=== PATIENT | male | born 1995 | race Caucasian/White ===

== ENCOUNTER 2018-02-11 12:24 | Inpatient (IN) | END 2018-02-13 18:20 | disposition home or self-care (01) | DRG 272 ==

== ENCOUNTER 2018-08-17 12:33 | Emergency (ER) | payer MEDICAID, OTHER ==
[~2018-08-17] VITALS: Wt 109.0 kg
--- NOTE | 2018-08-17 14:38 | ERD ---
ER Documentation Chief Complaint Chief Complaint CHEST PAIN AND BACK PAIN FOR THE PAST WEEK. HPI The patient is a 23-year-old male, presenting to the ER because of intermittent substernal and bilateral chest and upper back pain for the last week, pain is worse with movement, denies chest pain with vomiting/radiation/exertion/diapho resis, dyspnea, abdominal pain, vomiting, dizzy, diarrhea. 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 Medications Home Meds Active Scripts Ibuprofen* (Motrin*) 600 Mg Tab, 600 MG PO Q6H PRN for PAIN, #20 TAB Prov:EDDA TADEO MD 08/17/18 Reported Medications Rivaroxaban* (Xarelto*) 20 Mg Tablet, 20 MG PO WITH DINNER, TAB 08/17/18 Allergies Allergies: Coded Allergies: No Known Allergy (Unverified , 08/17/18) PMhx/Soc History of Surgery: No Anesthesia Reaction: No Hx Neurological Disorder: No Hx Respiratory Disorders: No Hx Cardiac Disorders: No Hx Psychiatric Problems: No Hx Miscellaneous Medical Probl: No Hx Alcohol Use: No Hx Substance Use: No Hx Tobacco Use: No Physical Exam Vitals Vital Signs Date Temp Pulse Resp B/P (MAP) Pulse Ox O2 O2 Flow FiO2 Time Delivery Rate 08/17/18 97.9 75 20 95/75 (82) 99 Room Air 19:26 08/17/18 97.9 89 20 115/70 99 Room Air 18:45 (85) 08/17/18 97.9 78 20 149/72 99 Room Air 18:42 (97) 08/17/18 97.9 79 16 108/71 97 Room Air 17:40 (83) 08/17/18 97.9 73 16 115/67 97 Room Air 16:50 (83) 08/17/18 97.9 77 20 118/73 99 Room Air 15:47 (88) 08/17/18 97.9 88 20 124/87 99 Room Air 15:18 (99) 08/17/18 97.9 102 20 133/84 99 12:36 (100) Physical Exam Const: No acute distress. Head: Atraumatic. Eyes: Normal Conjunctiva. ENT: Normal External Ears, Nose and Mouth. Neck: Full range of motion. No meningismus. Resp: Clear to auscultation bilaterally. Cardio: Regular rate and rhythm. Abd: Soft, non distended, normal bowel sounds, non tender. Skin: No petechiae or rashes. Back: No midline or flank tenderness. Ext: No cyanosis, or edema. Neur: Awake and alert. No focal deficit Psych: Normal Mood and Affect. Result Diagram: 08/17/18 1516 08/17/18 1516 Results 24 hrs Laboratory Tests Test 08/17/18 15:09 08/17/18 15:16 08/17/18 18:16 Urine Opiates Screen Negative Urine Barbiturates Negative Urine Amphetamines Screen Negative Urine Benzodiazepines Screen Negative Urine Cocaine Screen Negative Urine Cannabinoids Negative White Blood Count 5.5 10^3/ul Red Blood Count 5.14 10^6/ul Hemoglobin 15.1 g/dl Hematocrit 44.9 % Mean Corpuscular Volume 87.4 fl Mean Corpuscular Hemoglobin 29.4 pg Mean Corpuscular 33.6 g/dl Hemoglobin Concent Red Cell Distribution Width 12.0 % Platelet Count 256 10^3/UL Mean Platelet Volume 9.4 fl Immature Granulocytes % 0.400 % Neutrophils % 55.9 % Lymphocytes % 27.8 % Monocytes % 14.8 % Eosinophils % 0.7 % Basophils % 0.4 % Nucleated Red Blood Cells % 0.0 /100WBC Immature Granulocytes # 0.020 10^3/ul Neutrophils # 3.1 10^3/ul Lymphocytes # 1.5 10^3/ul Monocytes # 0.8 10^3/ul Eosinophils # 0.0 10^3/ul Basophils # 0.0 10^3/ul Nucleated Red Blood Cells # 0.0 10^3/ul Prothrombin Time 13.3 Sec Prothrombin Time Ratio 1.0 INR International 1.00 Normalized Ratio Activated Partial Thromboplast 30.3 Sec Time Sodium Level 140 mmol/L Potassium Level 4.3 mmol/L Chloride Level 101 mmol/L Carbon Dioxide Level 27 mmol/L Anion Gap 12 Blood Urea Nitrogen 16 mg/dl Creatinine 1.09 mg/dl Est Glomerular Filtrat > 60 mL/min Rate mL/min Glucose Level 96 mg/dl Calcium Level 9.8 mg/dl Total Bilirubin 0.6 mg/dl Direct Bilirubin 0.00 mg/dl Indirect Bilirubin 0.6 mg/dl Aspartate Amino Transf (AST/SGOT) 27 IU/L Alanine 33 IU/L Aminotransferase (ALT/SGPT) Alkaline Phosphatase 96 IU/L Creatine Kinase 127 IU/L Creatine Kinase Index 0.5 Creatinine Kinase MB (Mass) 0.63 ng/ml Troponin I < 0.012 ng/ml < 0.012 ng/ml Total Protein 8.3 g/dl Albumin 4.6 g/dl Globulin 3.70 g/dl Albumin/Globulin Ratio 1.24 Lipase 36 U/L Current Medications Medications Dose Sig/Haydee Start Time Status Last (Trade) Ordered Route PRN Stop Time Admin Dose Reason Admin IV Flush 10 ml STK-MED 08/17/18 DC 08/17/18 (NS 10 ml) ONCE .ROUTE 16:53 17:41 08/17/18 16:54 Sodium 100 ml @ ud STK-MED 08/17/18 DC 08/17/18 Chloride ONCE .ROUTE 16:53 17:42 08/17/18 16:54 Iohexol 100 ml @ ud STK-MED 08/17/18 DC 08/17/18 ONCE .ROUTE 16:53 17:42 08/17/18 16:54 Procedures/MDM [place] [address] Radiology Main Line: [phone] DIAGNOSTIC IMAGING REPORT Patient: FLACO GASTON : 1995 Age: 23 Sex: M MR #: [id number] DOS: 08/17/18 1448 Ordering MD: EDDA TADEO MD Location: E/R Room/Bed: PROCEDURE: CTA Chest. CLINICAL INDICATION: Chest pain and shortness of breath TECHNIQUE: Continues 1.25 mm axial images were obtained from lung apices to the domes of diaphragms following intravenous injection of 100 cc of Isovue 370. Images reconstructed in coronal, sagittal, and 3-D format using maximum intensity projection technique.. The calculated dose length product (DLP) = 691.35 mGy-cm. The CTDlvol = 17.55 mGy. One or more of the following dose reduction techniques were used: Automated exposure control, adjustment of the mA and or KV according to patient size, or use of iterative reconstruction technique. DICOM images are available. COMPARISON: No prior studies are available for comparison. FINDINGS: Images through the pulmonary arteries demonstrates no evidence of large or central pulmonary emboli. Ascending and descending thoracic aorta are normal in caliber without aneurysmal dilatation or dissection. There is a bovine branching anatomy of the great vessels. Visualized portions of the carotids are within n ormal limits. Heart chambers are normal in size. No significant coronary calcification is seen. There is no pericardial effusion. There are no pathologically enlarged mediastinal or axillary lymph nodes. Evaluation of the lung wells demonstrates no confluent pneumonia, pleural fluid, or pneumothorax. No suspicious or dominant lung nodules/masses are seen. No destructive bony lesions are identified. IMPRESSION: 1. No evidence of large or central pulmonary emboli. 2. No aortic aneurysm or dissection. 3. Lungs clear RPTAT: .Pardeep Velasco MD MD Date Time Electronically viewed and signed by .Pardeep Velasco MD, MD on 08/17/2018 17:41 .W/ CC: EDDA TADEO MD [id number] [place] [address] Radiology Main Line: [phone] DIAGNOSTIC IMAGING REPORT Patient: FLACO GASTON : 1995 Age: 23 Sex: M MR #: [id number] DOS: 08/17/18 1448 Ordering MD: EDDA TADEO MD Location: E/R Room/Bed: PROCEDURE: XR Chest, 1 View CLINICAL INDICATION: Chest pain. TECHNIQUE: Frontal view of the chest. COMPARISON: None FINDINGS: LUNGS: Unremarkable. No consolidation. PLEURAL SPACE: Unremarkable. No pneumothorax. HEART: Unremarkable. No cardiomegaly. MEDIASTINUM: Unremarkable. BONES/JOINTS: Unremarkable. IMPRESSION: No acute cardiopulmonary disease demonstrated. RPTAT: [facility] Harley Martinez Physician Email Production Specialist Date Time Electronically viewed and signed by Harley Martinez Physician Email Production Specialist on 08/17/2018 16:23 C/ CC: EDDA TADEO MD [phone] EK:42 pm Read by emergency physician Rate/Rhythm: Sinus tachycardia 106 beats/min QRS, ST, T-waves: No ST elevation, no T inversion, GISEL Impression: Abnormal EKG EK:51 pm Read by emergency physician Rate/Rhythm: NSR 69 beats/min QRS, ST, T-waves: No ST elevation, no T inversion, early repolarization Impression: Abnormal EKG MEDICAL MAKING DECISION: The patient is a 23-year-old male, presenting with acute chest pain of unclear etiology, is stable for outpatient follow-up The differential diagnoses considered include but are not limited to acute coronary syndrome, acute myocardial infarction, pericarditis, pulmonary embolism, aortic dissection, pneumonia, pleural effusion, pneumothorax, GERD, chest wall pain. The patient presents with chest pain and I considered pulmonary embolism, aortic dissection, pneumothorax among other diagnoses. Evaluation for acute coronary syndrome was performed. The HEART score (www.mdcalc.com) was utilized for risk stratification and found to be <= 3. Repeat EKG and troponin @ 3 hours were unchanged. Based on this evaluation the patients risk of major adverse cardiac events is <1%. Shared decision making occurred with patient and the decision has been made to discharge the patient for outpatient evaluation and functional study within 72 hours. Departure Diagnosis: Primary Impression: Chest pain Condition: Good Comments He was discharged with Motrin The patient's blood pressure was elevated (>120/80) but appears stable without evidence of hypertension emergency or urgency. The patient was counseled about the risks of hypertension and urged to pursue outpatient monitoring and therapy within a week with their primary care physician. I discussed the findings with the patient. I advised the patient to follow-up with the primary physician in about 2-3 days, sooner if needed and return if any concern. Disclaimer: Inadvertent spelling and grammatical errors are likely due to EHR/ dictation software use and do not reflect on the overall quality of patient care. Also, please note that the electronic time recorded on this note does not necessarily reflect the actual time of the patient encounter. EDDA TADEO MD Aug 17, 2018 14:38
[2018-08-17] MEDS ORDERED: RIVA20TA5 PO (14:52)
[2018-08-17] MEDS ORDERED: IOHEXOL 100 ML ONE (16:53)
[2018-08-17] MEDS ORDERED: SOD CHLORIDE 0.9% 100 ML ONE (16:53)
[2018-08-17] MEDS ORDERED: IBUP-1542 PO (19:19)
[2018-08-17 19:26] VITALS: BP 95/75; PULSE 75; RESP 20
== END 2018-08-17 19:28 | disposition home or self-care (01) ==
LOC: E/R 12:33
DX: R07.9 Chest pain, unspecified (principal)
CPT/HCPCS: 71045; 71275; 80053; 80307; 82550; 82553; 83690; 84484; 85025; 85610; 85730; 93005; Q9967; Z7502; Z7610